=== PATIENT | female | born 1965 | race Caucasian/White ===

== ENCOUNTER 2021-05-21 15:52 | Emergency (ER) | payer BC ==
[2021-05-21 16:44] VITALS: BP 134/84; PULSE 79; RESP 18; TEMP 98.5
--- NOTE | 2021-05-21 18:06 | ED ---
General Adult HPI - General Chief complaint: Upper Respiratory Infection Stated complaint: Covid+, wants antibodies Time Seen by Provider: 05/21/21 17:48 Source: patient, RN notes reviewed Mode of arrival: ambulatory Limitations: no limitations - History of Present Illness Initial comments: This is a well-appearing well nourished 55 year-old female alert and oriented 4, presents to the emergency room after having a positive Covid test at [facility] today. Patient states she went in with complaints of headache and congestion. She did test positive she states her symptoms started on Friday, May 19. She is coming to the ER today for monoclonal antibodies infusion. She does have a history of hypertension denies any heart or lung disease. She does state that she smokes occasionally. But not daily. She denies any chest pain or cough -: days(s) (3) Location: head, face Radiation: non-radiation Severity scale (1-10): 0 Consistency: intermittent Improves with: rest Worsens with: none Associated Symptoms: headaches, other (congestion) Treatments Prior to Arrival: none - Related Data Allergies Allergy/AdvReac Type Severity Reaction Status Date / Time No Known Allergies Allergy Verified 05/21/21 16:44 Review of Systems ROS Statement: Those systems with pertinent positive or pertinent negative responses have been documented in the HPI. ROS Other: All systems not noted in ROS Statement are negative. Past Medical History Past Medical History: Hypertension History of Any Multi-Drug Resistant Organisms: None Reported Past Surgical History: No Surgical Hx Reported Past Psychological History: No Psychological Hx Reported Smoking Status: Current some day smoker Past Alcohol Use History: Occasional Past Drug Use History: None Reported General Exam Limitations: no limitations General appearance: alert, in no apparent distress Head exam: Present: atraumatic, normocephalic, normal inspection, other (Frontal sinus pain with palpation) Eye exam: Present: normal appearance, EOMI ENT exam: Present: normal exam, normal oropharynx, mucous membranes moist Neck exam: Present: normal inspection, full ROM. Absent: tenderness, meningismus, lymphadenopathy, thyromegaly Respiratory exam: Present: normal lung sounds bilaterally. Absent: respiratory distress, wheezes, rales, rhonchi, stridor Cardiovascular Exam: Present: regular rate, normal rhythm, normal heart sounds. Absent: systolic murmur, diastolic murmur, rubs, gallop, clicks GI/Abdominal exam: Present: soft, normal bowel sounds. Absent: distended, tenderness, guarding, rebound, rigid Back exam: Present: normal inspection, full ROM. Absent: tenderness, CVA tenderness (R), CVA tenderness (L), rash noted Neurological exam: Present: alert, oriented X3, CN II-XII intact Psychiatric exam: Present: normal affect, normal mood Skin exam: Present: warm, dry, intact, normal color. Absent: rash, cyanosis, diaphoretic, petechiae, pallor Course Vital Signs 05/21/21 16:41 Temperature 98.5 F Pulse Rate 79 Respiratory 18 Rate Blood Pressure 134/84 O2 Sat by Pulse 98 Oximetry Medical Decision Making - Medical Decision Making Patient presents to the emergency room with positive Covid test. She does have a history of hypertension. She was sent for monoclonal antibodies. She tolerated the monoclonal antibody infusion well. She was to be directed to follow up with her primary care doctor in 1 week. Return to the emergency room with any new or worsening symptoms. Instructed to self quarantine for 10 days in 24 hours without fever. Case discussed with Dr. Beverly. Disposition Clinical Impression: COVID-19 Disposition: HOME SELF-CARE Condition: Good Instructions (If sedation given, give patient instructions): Coronavirus Disease 2019 (COVID-19) Additional Instructions: Take vitamin C, vitamin D and zinc over the counter for immune health. Take Tylenol and/or Motrin as needed for pain or fevers. Follow-up with the primary care doctor in 1 week. Return to the emergency room with any new or worsening symptoms. Remember to self quarantine for 10 days after symptom onset and 24 hours without a fever. Is patient prescribed a controlled substance at d/c from ED?: No Referrals: Anum Xiao MD [Primary Care Provider] - 1-2 days
[2021-05-21] MEDS ORDERED: CASIRIVIMAB (REGN10933) (EUA) 600 MG, IMDEVIMAB (REGN10987) (EUA) 600 MG in SODIUM CHLO... IVPB ONE (19:00)
[2021-05-21] MEDS ORDERED: SODIUM CHLORIDE 0.9% 50 ML IVPB ONE (19:30)
== END 2021-05-21 20:37 | disposition home or self-care (01) ==
LOC: EC 15:52
DX: U07.1 COVID-19 (principal); I10 Essential (primary) hypertension; F17.200 Nicotine dependence, unspecified, uncomplicated
CPT/HCPCS: 99283; 96365; Q0243